=== PATIENT | female | born 1990 | race African-American/Black ===

== ENCOUNTER 2022-05-03 11:02 | Observation (INO) | payer OTHER ==
[2022-05-03 12:11] VITALS: BMI 26.6
[2022-05-03] MEDS ORDERED: hydrALAZINE 20 MG/ML VIAL SLOW IVP PRN (12:38)
[2022-05-03] MEDS ORDERED: Labetalol HCl 100 MG/20 ML VIAL SLOW IVP PRN (12:50)
[2022-05-03 14:19] LABS: Hemoglobin 10.5 g/dL (12.0-15.5); Mean Corpuscular HGB CONC 34.7 g/dL (32.0-36.0); Mean Corpuscular Hemoglobin 30.2 pg (27.0-33.0); Mean Corpuscular Volume 87.1 fl (81.6-98.3); RBC Distribution Width 14.1 % (11.5-14.5); Red Blood Cell (RBC) Count 3.48 10x6/uL (3.90-5.03); White Blood Cell (WBC) Count 6.2 10x3/uL (3.5-10.5)
[2022-05-03 14:20] LABS: #Eosinphils 0.4 10x3/uL (0.0-0.5); #Monocytes 0.5 10x3/uL (0.0-1.1); #Neutrophils 3.9 10x3/uL (1.5-8.4); %Basophils 0.3 % (0.0-2.0); %Eosinophils 6.4 % (0.0-6.0); %Monocytes 8.4 % (0.0-10.0); %Neutrophils 62.4 % (40.0-75.0)
[2022-05-03 14:39] LABS: ALT (SGPT) 12 U/L (8-55); AST (SGOT) 26 U/L (5-34); Albumin 3.5 g/dL (3.5-5.0); Alkaline Phosphatase 79 U/L (40-110); Anion Gap 12 mmol/L (10-20); BUN (Urea Nitrogen) 6 mg/dL (7.0-18.7); Bilirubin, Total 0.3 mg/dL (0.2-1.2); Calc. Creatinine Clearance 149 mL/min (70-130); Calcium 9.1 mg/dL (7.8-10.44); Carbon Dioxide 21 mmol/L (22-29); Chloride 106 mmol/L (98-107); Estimated GFR 121; Globulin 3.7 g/dL (2.4-3.5); Glucose 73 mg/dL (70-105); Potassium 3.8 mmol/L (3.5-5.1); Protein, Total 7.2 g/dL (6.0-8.3); Sodium 135 mmol/L (136-145)
[2022-05-03 14:49] LABS: Mean Platelet Volume 9.9 fl (7.4-10.4); Platelet Count 317 10x3/uL (150-450)
[2022-05-03 14:55] LABS: Syphilis Antibody Nonreactive (Nonreactive); Syphilis Antibody Index 0.07 S/CO (<1.00 Non-Reactive)
[2022-05-03 14:57] LABS: HBSAg Index 0.18 S/CO (0-0.99); HIV (1/2) Antibody/Antigen Non-Reactive (NonReactive); HIV 1/2 INDEX 0.12 S/CO (<1.00); Hep B Surf Ag Non-Reactive S/CO (NonReactive)
[2022-05-03 16:04] LABS: Bilirubin Neg (Negative); Blood, Urine Negative (Negative); Clarity Sl. Cloudy (Clear); Glucose, Urine (Dipstick) Normal (Negative); Ketone, Urine Negative (Negative); Leukocyte 25 (Negative); Nitrite Negative (Negative); Protein, Urine (Dipstick) 30 mg/dl (Neg-Trace); Specific Gravity, Urine 1.015 (1.005-1.030)
[2022-05-03 16:17] LABS: Creatinine, Urine 205.62 mg/dL (47-110)
[2022-05-03 16:22] LABS: Bacteria/HPF 2+ HPF (None Seen); Epithelial Cast 0-3 LPF (None Seen); RBC/HPF 0-3 HPF (0-3); Renal Epithelial 0-3 HPF (None Seen); Transitional Epithelial 0-3 HPF (None Seen); WBC/HPF 0-3 HPF (0-3)
[2022-05-03] MEDS ORDERED: Calcium Gluc 4.6 MEQ/10 ML (100 MG/ML) SLOW IVP PRN (16:38)
[2022-05-03] MEDS ORDERED: Ondansetron PF 4 MG/2 ML Vial IVP PRN (16:38)
[2022-05-03] MEDS ORDERED: Promethazine HCl 25 MG/ML VIAL IM PRN (16:38)
[2022-05-03] MEDS ORDERED: Lorazepam 2 MG/ML VIAL SLOW IVP PRN (16:38)
[2022-05-03] MEDS ORDERED: Acetaminophen 500 MG TAB PO PRN (16:38)
[2022-05-03 19:40] LABS: Amphetamine Not Detected (NotDetected); Barbiturates Screen Not Detected (NotDetected); Benzodiazepine Screen Not Detected (NotDetected); Cocaine Metabolite Screen Not Detected (NotDetected); Methadone Not Detected (NotDetected); Methamphetamine Not Detected (NotDetected); Opiate Screen Not Detected (NotDetected); Oxycodone Screen Not Detected (NotDetected); Phencyclidine (PCP) Not Detected (NotDetected); THC/Cannabinoid Screen Not Detected (NotDetected); Tricyclic Screen Not Detected (NotDetected)
[2022-05-03] MEDS ORDERED: Labetalol HCl 100 MG TAB PO SCH (21:00)
[2022-05-04 00:49] LABS: HBSAB Concentration 895.51 mIU/mL; Hep B Surf AB Reactive (NonReactive)
[2022-05-04] MEDS ORDERED: Labetalol HCl 200 MG TAB PO SCH (09:00)
[2022-05-04 11:34] LABS: Chlamydia by PCR DETECTED (NotDetected); GC by PCR Not Detected (NotDetected)
[2022-05-04 11:35] VITALS: BP 115/58; TEMP 98.3
== END 2022-05-04 14:10 | disposition home or self-care (01) ==
LOC: CSHLD/OP 11:02 → CSHANTE 17:33
PROVIDERS: ADMIT Obstetrics & Gynecology; ATTEND Obstetrics & Gynecology
DX: O99.012 Anemia complicating pregnancy, second trimester (principal); D64.9 Anemia, unspecified; O09.622 Supervision of young multigravida, second trimester; Z3A.25 25 weeks gestation of pregnancy; Z79.899 Other long term (current) drug therapy
CPT/HCPCS: 36415; 76815; 80053; 80306; 81003; 81015; 82570; 84156; 85025; 86706; 86762; 86780; 86850; 86900; 86901; 87077; 87081; 87086; 87340; 87389; 87491; 87522; 87591; 87661; 96374; 99285; G0378

== ENCOUNTER 2022-06-05 23:25 | Observation (INO) | payer OTHER ==
[2022-06-05 23:44] VITALS: BMI 34.9
[2022-06-06] MEDS ORDERED: hydrALAZINE 20 MG/ML VIAL SLOW IVP PRN (00:06)
[2022-06-06 00:28] LABS: #Eosinphils 0.7 10x3/uL (0.0-0.5); #Monocytes 0.9 10x3/uL (0.0-1.1); #Neutrophils 5.4 10x3/uL (1.5-8.4); %Basophils 0.2 % (0.0-2.0); %Eosinophils 7.7 % (0.0-6.0); %Monocytes 9.3 % (0.0-10.0); %Neutrophils 59.1 % (40.0-75.0); Hemoglobin 8.7 g/dL (12.0-15.5); Mean Corpuscular HGB CONC 34.3 g/dL (32.0-36.0); Mean Corpuscular Hemoglobin 29.8 pg (27.0-33.0); Mean Platelet Volume 9.2 fl (7.4-10.4); Platelet Count 312 10x3/uL (150-450); RBC Distribution Width 14.8 % (11.5-14.5); Red Blood Cell (RBC) Count 2.92 10x6/uL (3.90-5.03); White Blood Cell (WBC) Count 9.1 10x3/uL (3.5-10.5)
[2022-06-06 00:44] LABS: ALT (SGPT) 21 U/L (8-55); AST (SGOT) 20 U/L (5-34); Albumin 3.2 g/dL (3.5-5.0); Alkaline Phosphatase 93 U/L (40-110); Anion Gap 11 mmol/L (10-20); BUN (Urea Nitrogen) 7 mg/dL (7.0-18.7); Bilirubin, Total 0.2 mg/dL (0.2-1.2); Calc. Creatinine Clearance 184 mL/min (70-130); Calcium 8.8 mg/dL (7.8-10.44); Carbon Dioxide 17 mmol/L (22-29); Chloride 110 mmol/L (98-107); Estimated GFR 122; Globulin 3.3 g/dL (2.4-3.5); Glucose 84 mg/dL (70-105); Potassium 3.8 mmol/L (3.5-5.1); Protein, Total 6.5 g/dL (6.0-8.3); Sodium 134 mmol/L (136-145)
[2022-06-06 01:08] LABS: Creatinine, Urine 51.84 mg/dL (47-110); Protein, Urine Random Quant Less than 10 mg/dL (1-14)
[2022-06-06] MEDS ORDERED: Labetalol HCl 100 MG TAB PO SCH (01:45)
[2022-06-06] MEDS ORDERED: Iron Sucrose Complex 200 MG in Sodium Chloride 0.9% 100 ML IVPB SCH (02:30)
[2022-06-06] MEDS ORDERED: diphenhydrAMINE 25 MG CAP PO SCH (02:30)
[2022-06-06] MEDS ORDERED: Acetaminophen 500 MG TAB PO SCH (02:30)
[2022-06-06] MEDS ORDERED: Labetalol HCl 200 MG TAB PO SCH (09:00)
[2022-06-06] MEDS ORDERED: Prenatal Vitamin 1 TAB PO SCH (09:00)
== END 2022-06-06 06:48 | disposition home or self-care (01) ==
LOC: CSHLD/OP 23:25 → CSHLD 06-06 01:58
PROVIDERS: ADMIT Obstetrics & Gynecology; ATTEND Obstetrics & Gynecology
DX: O10.913 Unspecified pre-existing hypertension complicating pregnancy, third trimester (principal); O99.013 Anemia complicating pregnancy, third trimester; D64.9 Anemia, unspecified; Z79.899 Other long term (current) drug therapy; Z3A.33 33 weeks gestation of pregnancy
CPT/HCPCS: 36415; 80053; 82570; 82728; 84156; 85025; 96374; 96375; G0378; J0360; J1756; J3490

== ENCOUNTER 2022-07-02 11:22 | Inpatient (IN) | payer OTHER ==
[~2022-07-02 11:22] MED LIST: Bupivacaine PF 0.5% 30 ML VIAL ONE
[2022-07-02] MEDS ORDERED: Acetaminophen 500 MG TAB PO SCH (14:00)
[2022-07-02 14:22] LABS: #Eosinphils 0.6 10x3/uL (0.0-0.5); #Monocytes 0.5 10x3/uL (0.0-1.1); %Basophils 0.3 % (0.0-2.0); %Eosinophils 7.1 % (0.0-6.0); %Lymphocytes 21.9 % (18.0-47.0); %Monocytes 6.8 % (0.0-10.0); %Neutrophils 63.3 % (40.0-75.0); Hemoglobin 9.2 g/dL (12.0-15.5); Mean Corpuscular HGB CONC 33.7 g/dL (32.0-36.0); Mean Corpuscular Hemoglobin 29.8 pg (27.0-33.0); Mean Corpuscular Volume 88.3 fl (81.6-98.3); Mean Platelet Volume 9.8 fl (7.4-10.4); Platelet Count 285 10x3/uL (150-450); RBC Distribution Width 16.1 % (11.5-14.5); Red Blood Cell (RBC) Count 3.09 10x6/uL (3.90-5.03); White Blood Cell (WBC) Count 7.9 10x3/uL (3.5-10.5)
[2022-07-02] MEDS ORDERED: hydrALAZINE 20 MG/ML VIAL SLOW IVP PRN ×3 (14:34→23:16)
[2022-07-02 14:35] LABS: ALT (SGPT) 15 U/L (8-55); AST (SGOT) 19 U/L (5-34); Albumin 3.4 g/dL (3.5-5.0); Alkaline Phosphatase 130 U/L (40-110); Anion Gap 14 mmol/L (10-20); BUN (Urea Nitrogen) 9 mg/dL (7.0-18.7); Bilirubin, Total 0.5 mg/dL (0.2-1.2); Calc. Creatinine Clearance 0 mL/min (70-130); Calcium 8.9 mg/dL (7.8-10.44); Carbon Dioxide 17 mmol/L (22-29); Chloride 110 mmol/L (98-107); Estimated GFR 121; Globulin 2.8 g/dL (2.4-3.5); Glucose 106 mg/dL (70-105); Protein, Total 6.2 g/dL (6.0-8.3); Sodium 137 mmol/L (136-145)
[2022-07-02 14:53] LABS: Creatinine, Urine 174.53 mg/dL (47-110)
[2022-07-02] MEDS ORDERED: Ondansetron PF 4 MG/2 ML Vial IVP PRN (15:25)
[2022-07-02] MEDS ORDERED: Promethazine HCl 25 MG/ML VIAL IM PRN (15:25)
[2022-07-02] MEDS ORDERED: Fentanyl 100 MCG/2 ML VIAL SLOW IVP PRN (15:25)
[2022-07-02 16:17] LABS: Syphilis Antibody Nonreactive (Nonreactive); Syphilis Antibody Index 0.06 S/CO (<1.00 Non-Reactive)
[2022-07-02 16:18] LABS: HBSAg Index 0.17 S/CO (0-0.99); Hep B Surf Ag Non-Reactive S/CO (NonReactive)
[2022-07-02] MEDS ORDERED: Acetaminophen 500 MG TAB PO PRN (16:23)
[2022-07-02] MEDS ORDERED: Lidocaine 1% (PF) 30 ML VIAL SC PRN (16:23)
[2022-07-02] MEDS ORDERED: Carboprost 250 MCG/ML AMP IM PRN (16:23)
[2022-07-02] MEDS ORDERED: Misoprostol 200 MCG TAB PR PRN (16:23)
[2022-07-02] MEDS ORDERED: Docusate 100 MG CAP PO PRN (16:23)
[2022-07-02] MEDS ORDERED: Misoprostol 100 MCG TAB VAG SCH (16:30)
[2022-07-02] MEDS ORDERED: Penicillin G Potassium 5 MILL.UNITS in Sodium Chloride 0.9% 100 ML IVPB SCH (16:30)
[2022-07-02] MEDS ORDERED: NS w/ Oxytocin 30 units 500 ML IV SCH (16:30)
[2022-07-02 19:18] LABS: HIV (1/2) Antibody/Antigen Non-Reactive (NonReactive); HIV 1/2 INDEX 0.07 S/CO (<1.00)
[2022-07-02] MEDS ORDERED: Penicillin G Potassium 5 MILL.UNITS VIAL ONE (21:30)
[2022-07-02] MEDS: hydrALAZINE 20 MG/ML VIAL SLOW IVP PRN ×2 (21:49→22:35)
[2022-07-02] MEDS: Labetalol HCl 200 MG TAB PO SCH (21:49)
[2022-07-02] MEDS ORDERED: Magnesium Sulfate 20 gm/500 ml 20 GM/500 ML BAG ONE (22:06)
[2022-07-02] MEDS ORDERED: diphenhydrAMINE 25 MG CAP PO SCH (22:15)
[2022-07-02] MEDS ORDERED: Labetalol HCl 100 MG/20 ML VIAL SLOW IVP PRN ×2 (23:16)
[2022-07-02] MEDS ORDERED: Calcium Gluc 4.6 MEQ/10 ML (100 MG/ML) SLOW IVP PRN (23:16)
[2022-07-02] MEDS ORDERED: Lorazepam 2 MG/ML VIAL SLOW IVP PRN (23:16)
[2022-07-03] MEDS ORDERED: Fentanyl 2 mcg/Bup 0.1% Cadd 100 ML ONE (00:49)
[2022-07-03] MEDS ORDERED: diphenhydrAMINE 50 MG/ML VIAL IVP PRN (01:29)
[2022-07-03] MEDS ORDERED: Promethazine HCl 25 MG/ML VIAL IM PRN (01:29)
[2022-07-03] MEDS ORDERED: Lactated Ringer's 500 ML IV PRN (01:29)
[2022-07-03] MEDS ORDERED: ePHEDrine Sulfate 50 MG/10 ML VIAL SLOW IVP PRN (01:29)
[2022-07-03] MEDS ORDERED: Ondansetron PF 4 MG/2 ML Vial IVP PRN (01:29)
[2022-07-03] MEDS ORDERED: Moisturizing Cream (Eucerin) 113 GM JAR TOP PRN (01:29)
[2022-07-03] MEDS ORDERED: Naloxone HCl 0.4 mg/ml Vial IVP PRN ×2 (01:29)
[2022-07-03] MEDS ORDERED: Communication Order-Pharmacy FS SCH (01:30)
[2022-07-03] MEDS ORDERED: NS w/ Oxytocin 30 units 500 ML IV SCH (02:15)
[2022-07-03] MEDS: Penicillin G 2.5 MILL.units 2.5 MILL.UNITS in Premix Bag 1 BAG IVPB SCH ×3 (05:42→13:54)
[2022-07-03] MEDS: Magnesium Sulfate 20 gm/500 ml 20 GM/500 ML BAG IVPB SCH ×2 (07:05→18:07)
[2022-07-03] MEDS: Acetaminophen 325 MG TAB PO PRN (08:04)
[2022-07-03] MEDS: Fentanyl 2 mcg/Bupivacaine 0.1% Cassette 100 ML EPIDURAL SCH ×2 (08:04→15:49)
[2022-07-03] MEDS: Labetalol HCl 200 MG TAB PO SCH ×2 (09:30→20:30)
[2022-07-03] MEDS ORDERED: Lanolin Ointment 7 GM TUBE TOP PRN (17:43)
[2022-07-03] MEDS ORDERED: Preparation H Ointment 28 GM TUBE PR PRN (17:43)
[2022-07-03] MEDS ORDERED: Benzocaine-Menthol 82.5 ML CAN TOP PRN (17:43)
[2022-07-03] MEDS ORDERED: Boostrix 0.5 ML (Tdap) VIAL (>/=7 yrs of age) IM ONE (17:43)
[2022-07-03] MEDS ORDERED: Bisacodyl 10 MG SUPP PR PRN (17:43)
[2022-07-03] MEDS ORDERED: Milk Of Magnesia 30 ML UDCUP PO PRN (17:43)
[2022-07-03] MEDS: Lactated Ringer's 1,000 ML IV SCH (19:56)
[2022-07-03] MEDS ORDERED: Ondansetron ODT 4 MG TAB PO PRN (20:14)
[2022-07-03] MEDS: Ibuprofen 800 MG TAB PO SCH (20:30)
[2022-07-04 03:39] LABS: Hemoglobin 9.7 g/dL (12.0-15.5)
[2022-07-04] MEDS: Ibuprofen 800 MG TAB PO SCH ×3 (06:42→21:00)
[2022-07-04] MEDS: Labetalol HCl 200 MG TAB PO SCH ×3 (08:05→21:00)
[2022-07-04] MEDS: Magnesium Sulfate 20 gm/500 ml 20 GM/500 ML BAG IVPB SCH (15:43)
[2022-07-04] MEDS: Lactated Ringer's 1,000 ML IV SCH ×2 (19:40→21:00)
[2022-07-04] MEDS: Ferrous Sulfate 325 MG TAB PO SCH (19:40)
[2022-07-04] MEDS: Prenatal Vitamin 1 TAB PO SCH (19:40)
[2022-07-04] MEDS: Penicillin G 2.5 MILL.units 2.5 MILL.UNITS in Premix Bag 1 BAG IVPB SCH (19:52)
[2022-07-05] MEDS: Acetaminophen 325 MG TAB PO PRN (01:45)
[2022-07-05 05:19] LABS: Hemoglobin 8.7 g/dL (12.0-15.5)
[2022-07-05] MEDS: Ibuprofen 800 MG TAB PO SCH ×2 (05:23→14:00)
[2022-07-05] MEDS: Ferrous Sulfate 325 MG TAB PO SCH (08:56)
[2022-07-05] MEDS: Prenatal Vitamin 1 TAB PO SCH (08:56)
[2022-07-05] MEDS: Labetalol HCl 200 MG TAB PO SCH (08:57)
[2022-07-05 11:57] VITALS: BP 144/71; TEMP 98.2
== END 2022-07-05 15:20 | disposition home or self-care (01) | DRG 807 ==
LOC: CSHLD/OP 11:22 → CSHLD 16:37 → CSHPP 07-04 20:15
PROVIDERS: ADMIT Obstetrics & Gynecology; ATTEND Obstetrics & Gynecology
PROC: 0U7C7ZZ Dilation of Cervix, Via Natural or Artificial Opening (ICD-10-PCS; 2022-07-02)
PROC: 10E0XZZ Delivery of Products of Conception, External Approach (ICD-10-PCS; principal; 2022-07-03)
PROC: 10907ZC Drainage of Amniotic Fluid, Therapeutic from Products of Conception, Via Natural or Artificial Opening (ICD-10-PCS; 2022-07-03)
PROC: 10H07YZ Insertion of Other Device into Products of Conception, Via Natural or Artificial Opening (ICD-10-PCS; 2022-07-03)
PROC: 3E033VJ Introduction of Other Hormone into Peripheral Vein, Percutaneous Approach (ICD-10-PCS; 2022-07-03)
DX: O11.4 Pre-existing hypertension with pre-eclampsia, complicating childbirth (principal); Z37.0 Single live birth; O10.92 Unspecified pre-existing hypertension complicating childbirth; Z3A.37 37 weeks gestation of pregnancy; O99.824 Streptococcus B carrier state complicating childbirth; D64.9 Anemia, unspecified; O99.02 Anemia complicating childbirth; O36.63X0 Maternal care for excessive fetal growth, third trimester, not applicable or unspecified; Z79.82 Long term (current) use of aspirin; Z79.899 Other long term (current) drug therapy
CPT/HCPCS: 36415; 51702; 80053; 82570; 84156; 85014; 85018; 85025; 86780; 86850; 86900; 86901; 87340; 87389; 99285; J0360; J1650; J2405; J2540; J2590; J3475; J3490; S0020